=== PATIENT | female | born 1975 | race Caucasian/White ===

== ENCOUNTER 2021-11-03 13:20 | Emergency (ER) | payer MEDICAID, SELFPAY ==
--- NOTE | 2021-11-03 13:45 | ECG_ITS ---
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 Measurements Intervals [place] Rate: 88 P: 155 WV: 138 QRS: 19 QRSD: 96 T: 139 QT: 364 QTc: 442 Interpretive Statements SINUS RHYTHM POSSIBLE LEFT ATRIAL ENLARGEMENT [-0.1mV P-WAVE IN V1/V2] LOW QRS VOLTAGE IN EXTREMITY LEADS [QRS DEFLECTION < 0.5 mV IN LIMB LEADS] ABNORMAL QRS-T ANGLE [QRS-T AXIS DIFFERENCE > 60] Compared to ECG 11/03/2021 14:16:06 Low QRS voltage now present Electronically Signed On 11-03-2021 17:04:38 ENGINEERING AGENT by Felton Hooks M.D. [email or web address].[employer]/store/OM/[id number]
--- NOTE | 2021-11-03 13:45 | XR_ITS ---
WS: [id number] XR chest 1V portable [id number] REASON FOR EXAM: sob FINDINGS: The heart and mediastinum are within normal limits. Calcified granulomatous disease bilaterally. No acute pulmonary parenchymal or pleural abnormality. Bony thorax intact. XR/XR chest 1V portable [id number] IMPRESSION: No acute chest abnormality.
[2021-11-03 14:02] VITALS: BP 112/78; PULSE 102; RESP 20; TEMP 36.4; O2SAT 98; BMI 24.7
--- NOTE | 2021-11-03 14:09 | W.ED.SOB ---
Documented by User: LORI Kong 11/04/21 07:05 HPI - SOB/Dyspnea General: Chief Complaint: Shortness of Breath/Dyspnea Stated Complaint: flu like symp, sob, coughing up blood Time Seen by Provider: 11/03/21 16:27 History of Present Illness: HPI Narrative: Patient is a 46-year-old female who comes to the ED with Covid symptoms and shortness of breath. Patient was seen at [facility] last week and they did not have COVID-19 tests at the time. They told her to assume that she has Covid and self quarantine. She feels like she is not getting any better. Patient says for the past 2 weeks she has had symptoms of fever, chills, body aches, nasal congestion/drainage, cough, shortness of breath nausea and vomiting. She says her cough is productive and she is gotten up some brown sputum along with some sputum with a little bit of blood today. She reports having at least 1-2 episodes of emesis a day. She says she has not had any appetite and has lost her sense of taste. She feels dehydrated. She also reports having some chest pain that started several days ago as well gets worse with her cough. Patient has a history of spindle cell cancer. Associated symptoms: Reports chest pain, fever(s), hemoptysis, nausea and vomiting; Deny abdominal pain, orthopnea or palpitations Review of Systems Const: Reports: fever(s), chills, body aches and change in appetite (decreased appetite); Denies: fatigue Eyes: Denies: change in vision or eye discomfort ENMT: Reports: nasal congestion; Denies: throat pain, odynophagia or nasal discharge Card: Reports: chest pain; Denies: palpitations, edema, swelling of feet/ankles, dyspnea on exertion or orthopnea Resp: Reports: dyspnea, productive cough, change in phlegm color (brownish color) and hemoptysis; Denies: non-productive cough GI: Reports: nausea and vomiting; Denies: abdominal pain, diarrhea, constipation or hematochezia : Denies: flank pain, dysuria or hematuria Musc: Denies: neck pain, back pain or extremity swelling Skin/Breast: Denies: rash or new lesions Neuro: Denies: headache(s) PFS ED PFSH: 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 Surgical History H/O: hysterectomy Physical Exam Const: COMMON NORMALS: patient oriented x3 and alert HENMT: COMMON NORMALS: normocephalic HEAD & SCALP: normocephalic MOUTH: moist mucous membranes abnormal Details: parched THROAT: posterior oropharynx normal and uvula midline Neck/C-Spine: COMMON NORMALS: supple GENERAL: Yes normal visual inspection Resp: COMMON NORMALS: normal respiratory effort, No retractions, No use of accessory muscles and clear to auscultation bilaterally EFFORT & INSPECTION: Yes able to speak in complete sentences, No tachypneic, No respiratory distress and No Actively coughing AUSCULTATION: clear to auscultation bilaterally Cardio: COMMON NORMALS: regular rate, regular rhythm, S1 normal heart sound present, S2 normal heart sound present, No gallops present (Cardio), No clicks present (Cardio), No murmurs present (Cardio) and Peripheral pulses 2+ throughout RATE: regular rate RHYTHM: regular rhythm HEART SOUNDS: S1 normal heart sound present and S2 normal heart sound present PERIPHERAL PULSES: Peripheral pulses 2+ throughout GI: COMMON NORMALS: Normal to inspection, nondistended, normoactive bowel sounds present, Soft to palpation, non-tender and no masses PALPATION: Yes Soft to palpation : COMMON NORMALS: Yes no CVA tenderness BLADDER/KIDNEY EXAM: Yes no CVA tenderness Back/Pelvis: COMMON NORMALS: no CVA tenderness Extremity: COMMON NORMALS: normal to inspection Neuro: COMMON NORMALS: patient oriented x3 SENSORIUM/ORIENTATION: Yes alert GAIT: Yes Normal gait present Skin: GENERAL SKIN EXAM: dry skin Course Vital Signs: Vital signs: Vital Signs Temperature 98.0 F 11/03/21 16:41 Pulse Rate 92 11/03/21 16:41 Respiratory Rate 16 11/03/21 16:41 Blood Pressure 125/87 11/03/21 16:41 Pulse Oximetry 97 11/03/21 18:50 MDM - SOB/Dyspnea Lab Data I reviewed the patient's lab results. : 11/03/21 17:35 11/03/21 17:35 Labs/Radiology: Radiology Impressions Chest X-Ray 11/03/21 13:45 IMPRESSION: No acute chest abnormality. Laboratory Results WBC 7.3 10^3/uL (4.0-10.0) 11/03/21 17:35 RBC 5.25 10^6/uL (4.1-5.3) 11/03/21 17:35 Hgb 14.1 g/dL (11.5-15.3) 11/03/21 17:35 Hct 44.4 % (37.0-47.0) 11/03/21 17:35 MCV 84.6 fl (81-99) 11/03/21 17:35 MCH 26.9 pg (28.0-34.0) L 11/03/21 17: MCHC 31.8 g/dL (30.0-36.0) 11/03/21: RDW 13.8 % (12.1-15.1) 11/03/21 17:35 Plt Count 235 10^3/cmm (130-400) 11/03/21: MPV 10.4 fL (7.4-10.4) 11/03/21 17:35 Neut % (Auto) 80.4 % 11/03/21 17:35 Lymph % (Auto) 15.9 % 11/03/21 17:35 Mercer % (Auto) 3.0 % 11/03/21 17:35 Eos % (Auto) 0.1 % 11/03/21 17:35 Baso % (Auto) 0.3 % 11/03/21 17:35 Neut # (Auto) 5.88 10^3/uL (1.8-7.7) 11/03/21 17:35 Lymph # (Auto) 1.2 10^3/uL (0.8-4.8) 11/03/21 17:35 Mercer # (Auto) 0.2 10^3/uL (0.2-0.9) 11/03/21 17:35 Eos # (Auto) 0.0 10^3/uL (0.0-0.8) 11/03/21 17:35 Baso # (Auto) 0.0 10^3/uL (0.0-0.1) 11/03/21 17:35 Nucleated RBC % (auto) 0 % 11/03/21: Nucleated RBCs # 0.0 /100WBC 11/03/21 17:35 D-Dimer 0.41 ug/mIFEU (0-0.59) 11/03/21 17:35 Sodium 138 mmol/L (136-145) 11/03/21 17:35 Potassium 4.0 mmol/L (3.5-5.1) 11/03/21 17:35 Chloride 106 mmol/L (98-107) 11/03/21 17:35 Carbon Dioxide 19 mmol/L (22-29) L 11/03/21 17:35 Anion Gap 17.0 (5-19) 11/03/21 17:35 BUN 14 mg/dL (6-20) 11/03/21 17:35 Creatinine 0.5 mg/dL (0.5-0.9) 11/03/21 17:35 GFR Calculation 133.4 mL/min (90-130) H 11/03/21 17:35 Glucose 117 mg/dL (65-115) H 11/03/21 17:35 Calculated Osmolality 288 mOsm/kg (285-295) 11/03/21 17:35 Calcium 9.3 mg/dL (8.5-10.5) 11/03/21 17:35 Total Bilirubin 0.2 mg/dL (0.15-1.2) 11/03/21 17:35 AST 48 U/L (0-32) H 11/03/21 17:35 ALT 30 U/L (0-33) 11/03/21 17:35 Alkaline Phosphatase 163 IU/L (35-105) H 11/03/21 17:35 Troponin T Baseline 6 ng/L (0-10) 11/03/21 17:35 Total Protein 7.6 g/dL (6.6-8.7) 11/03/21 17:35 Albumin 4.3 g/dL (3.5-5.2) 11/03/21 17:35 Globulin 3.3 g/dL (1.3-4.6) 11/03/21 17:35 Influenza Type A Ag Negative (Negative) 11/03/21 16:39 Influenza Type B Ag Negative (Negative) 11/03/21 16:39 SARS-CoV-2 Ag (Rapid) Positive (Negative) H 11/03/21 16:39 EKG Data EKG 1: EKG Interpretation Date: 11/03/21 Interpretation: Sinus rhythm, 95 bpm, no ST segment elevation or depression seen. Discharge Plan Discharge Patient Disposition: Left Against Medical Advice Clinical Impression: COVID-19 Condition: Stable Prescriptions: New dexamethasone 6 mg tablet 6 mg PO DAILY Qty: 6 0RF Referrals: Carley Felton PA [Primary Care Provider] - Patient Instructions: COVID-19 (Coronavirus Disease 2019) (ED) Sign Out Sign Out Data: Patient Sign Out occurred on 11/03/21 at 17:11. Patient's care was discussed, and care was transferred from to LORI Kee. 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 I was not aware of this until long after she was gone and I went to discharge the patient. Patient did not qualify for home O2. Her symptoms have been present over the past 14 days and therefore would not qualify for any type of outpatient medications for COVID. I did not get a chance to discuss patient's imaging or blood work results with her prior to her leaving nor give her any type of home management or return precautions. Lab Data : 11/03/21 17:35 11/03/21 17:35 Labs/Radiology: Radiology Impressions Chest X-Ray 11/03/21 13:45 IMPRESSION: No acute chest abnormality. Laboratory Results WBC 7.3 10^3/uL (4.0-10.0) 11/03/21 17:35 RBC 5.25 10^6/uL (4.1-5.3) 11/03/21 17:35 Hgb 14.1 g/dL (11.5-15.3) 11/03/21 17:35 Hct 44.4 % (37.0-47.0) 11/03/21 17:35 MCV 84.6 fl (81-99) 11/03/21 17:35 MCH 26.9 pg (28.0-34.0) L 11/03/21 17:35 MCHC 31.8 g/dL (30.0-36.0) 11/03/21 17:35 RDW 13.8 % (12.1-15.1) 11/03/21 17:35 Plt Count 235 10^3/cmm (130-400) 11/03/21 17:35 MPV 10.4 fL (7.4-10.4) 11/03/21 17:35 Neut % (Auto) 80.4 % 11/03/21 17:35 Lymph % (Auto) 15.9 % 11/03/21 17:35 Mercer % (Auto) 3.0 % 11/03/21 17:35 Eos % (Auto) 0.1 % 11/03/21 17:35 Baso % (Auto) 0.3 % 11/03/21 17:35 Neut # (Auto) 5.88 10^3/uL (1.8-7.7) 11/03/21 17:35 Lymph # (Auto) 1.2 10^3/uL (0.8-4.8) 11/03/21 17:35 Mercer # (Auto) 0.2 10^3/uL (0.2-0.9) 11/03/21 17:35 Eos # (Auto) 0.0 10^3/uL (0.0-0.8) 11/03/21 17:35 Baso # (Auto) 0.0 10^3/uL (0.0-0.1) 11/03/21 17:35 Nucleated RBC % (auto) 0 % 11/03/21 17:35 Nucleated RBCs # 0.0 /100WBC 11/03/21 17:35 D-Dimer 0.41 ug/mIFEU (0-0.59) 11/03/21 17:35 Sodium 138 mmol/L (136-145) 11/03/21 17:35 Potassium 4.0 mmol/L (3.5-5.1) 11/03/21 17:35 Chloride 106 mmol/L (98-107) 11/03/21 17:35 Carbon Dioxide 19 mmol/L (22-29) L 11/03/21 17:35 Anion Gap 17.0 (5-19) 11/03/21 17:35 BUN 14 mg/dL (6-20) 11/03/21 17:35 Creatinine 0.5 mg/dL (0.5-0.9) 11/03/21 17:35 GFR Calculation 133.4 mL/min (90-130) H 11/03/21 17:35 Glucose 117 mg/dL (65-115) H 11/03/21 17:35 Calculated Osmolality 288 mOsm/kg (285-295) 11/03/21 17:35 Calcium 9.3 mg/dL (8.5-10.5) 11/03/21 17:35 Total Bilirubin 0.2 mg/dL (0.15-1.2) 11/03/21 17:35 AST 48 U/L (0-32) H 11/03/21 17:35 ALT 30 U/L (0-33) 11/03/21 17:35 Alkaline Phosphatase 163 IU/L (35-105) H 11/03/21 17:35 Troponin T Baseline 6 ng/L (0-10) 11/03/21 17:35 Total Protein 7.6 g/dL (6.6-8.7) 11/03/21 17:35 Albumin 4.3 g/dL (3.5-5.2) 11/03/21 17:35 Globulin 3.3 g/dL (1.3-4.6) 11/03/21 17:35 Influenza Type A Ag Negative (Negative) 11/03/21 16:39 Influenza Type B Ag Negative (Negative) 11/03/21 16:39 SARS-CoV-2 Ag (Rapid) Positive (Negative) H 11/03/21 16:39 Discharge Plan Discharge Patient Disposition: Left Against Medical Advice Clinical Impression: COVID-19 Condition: Stable Prescriptions: New dexamethasone 6 mg tablet 6 mg PO DAILY Qty: 6 0RF Referrals: Carley Felton PA [Primary Care Provider] - Patient Instructions: COVID-19 (Coronavirus Disease 2019) (ED) Sign Out Sign Out Data: Patient Sign Out occurred on 11/03/21 at 17:11. Patient's care was discussed, and care was transferred from to LORI Kee. Coding Level of Care Code ED Inspector Receiving for Serjio Fwd Exam Comprehensive
--- NOTE | 2021-11-03 15:45 | ECG_ITS ---
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 Measurements Intervals [place] Rate: 95 P: 45 NE: 135 QRS: 26 QRSD: 90 T: 40 QT: 356 QTc: 449 Interpretive Statements SINUS RHYTHM No previous ECG available for comparison Electronically Signed On 11-03-2021 17:16:21 STOCK BLENDER by Felton Hooks M.D. [id number]
[2021-11-03 16:41] VITALS: BP 125/87; PULSE 92; RESP 16; TEMP 36.7; O2SAT 92
[2021-11-03 17:21] LABS: Influenza A by IFA Negative (Negative); Influenza B by IFA Negative (Negative); SARS Covid-2 Antigen Positive (Negative)
[2021-11-03 17:48] LABS: Basophils % 0.3 %; Eosinophils % 0.1 %; Hematocrit 44.4 % (37.0-47.0); Hemoglobin 14.1 g/dL (11.5-15.3); Lymphocytes # 1.2 10^3/uL (0.8-4.8); Lymphocytes % 15.9 %; Mean Corpuscular HGB Conc 31.8 g/dL (30.0-36.0); Mean Corpuscular Hemoglobin 26.9 pg (28.0-34.0); Mean Corpuscular Volume 84.6 fl (81-99); Mean Platelet Volume 10.4 fL (7.4-10.4); Monocytes # 0.2 10^3/uL (0.2-0.9); Neutrophils # 5.88 10^3/uL (1.8-7.7); Neutrophils % 80.4 %; Nucleated Red Blood Cells % 0 %; Platelet Count 235 10^3/cmm (130-400); Red Blood Count 5.25 10^6/uL (4.1-5.3); Red Cell Distribution Width 13.8 % (12.1-15.1); White Blood Count 7.3 10^3/uL (4.0-10.0)
[2021-11-03 18:09] LABS: D Dimer 0.41 ug/mIFEU (0-0.59)
[2021-11-03 18:45] LABS: Alanine Aminotransferase 30 U/L (0-33); Albumin Level 4.3 g/dL (3.5-5.2); Alkaline Phosphatase 163 IU/L (35-105); Aspartate Amino Transferase 48 U/L (0-32); Blood Urea Nitrogen 14 mg/dL (6-20); Calcium 9.3 mg/dL (8.5-10.5); Carbon Dioxide 19 mmol/L (22-29); Chloride 106 mmol/L (98-107); Globulin 3.3 g/dL (1.3-4.6); Glomerular Filtration Rate 133.4 mL/min (90-130); Glucose 117 mg/dL (65-115); Osmolality Calculated 288 mOsm/kg (285-295); Sodium 138 mmol/L (136-145); Total Bilirubin 0.2 mg/dL (0.15-1.2); Total Protein 7.6 g/dL (6.6-8.7)
[2021-11-03] MEDS: acetaminophen 500 mg Tablet 1000 MG PO (18:46)
[2021-11-03 18:50] VITALS: O2SAT 97; O2SAT 99
[2021-11-03 19:55] LABS: Troponin(5th) Baseline 6 ng/L (0-10)
== END 2021-11-03 20:02 | disposition left against medical advice (07) ==
PROVIDERS: Physician Assistant; Emergency Provider Physician Assistant; PCP Nurse Practitioner
DX: U07.1 COVID-19 (principal); Z53.21 Procedure and treatment not carried out due to patient leaving prior to being seen by health care provider; Z85.89 Personal history of malignant neoplasm of other organs and systems
CPT/HCPCS: 71045; 80053; 84484; 85025; 85378; 87426; 87804; 93005; 99283